=== PATIENT | female | born 1950 | race Caucasian/White ===

== ENCOUNTER → 2023-11-30 13:05 | Outpatient (REF) | payer MEDICARE, OTHER, SELFPAY | LOC: WDC 13:05 | PROVIDERS: ATTENDING PHYSICIAN Family Medicine | DX: Z12.31 Encounter for screening mammogram for malignant neoplasm of breast (principal) | CPT/HCPCS: 77063; 77067 ==

== ENCOUNTER → 2024-12-03 16:37 | Outpatient (REF) | payer MEDICARE, OTHER, SELFPAY | LOC: WDC 16:37 | PROVIDERS: ATTENDING PHYSICIAN Family Medicine | DX: Z12.31 Encounter for screening mammogram for malignant neoplasm of breast (principal) | CPT/HCPCS: 77063; 77067 ==

== ENCOUNTER 2025-04-01 06:14 | Day surgery (SDC) | payer MEDICARE, OTHER, SELFPAY | END 2025-04-01 11:57 | disposition home or self-care (01) | LOC: GI 06:14 | PROVIDERS: ATTENDING PHYSICIAN Internal Medicine Gastroenterology; FAMILY PHYSICIAN Family Medicine | DX: Z12.11 Encounter for screening for malignant neoplasm of colon (principal); K57.30 Diverticulosis of large intestine without perforation or abscess without bleeding; K64.8 Other hemorrhoids; K55.20 Angiodysplasia of colon without hemorrhage; D12.2 Benign neoplasm of ascending colon | CPT/HCPCS: 45385; 88305 ==